=== PATIENT | female | born 2000 | race Caucasian/White ===

== ENCOUNTER 2018-06-02 11:59 | Emergency (ER) | payer BC, OTHER ==
[2018-06-02 12:10] VITALS: BP 110/60
--- NOTE | 2018-06-02 12:55 | RADIOLOGY REPORT (SQ) ---
EXAM DESCRIPTION: HAND RIGHT 3 VIEWS COMPLETED DATE/TIME: 06/02/2018 12:47 pm REASON FOR STUDY: fifth digit pain COMPARISON: None. EXAM PARAMETERS: NUMBER OF VIEWS: Three views. TECHNIQUE: AP, lateral and oblique radiographic images acquired of the right hand. LIMITATIONS: None. FINDINGS: MINERALIZATION: Normal. BONES: No acute fracture or dislocation. No worrisome bone lesions. JOINTS: No effusions. SOFT TISSUES: No soft tissue swelling. No foreign body. OTHER: No other significant finding. IMPRESSION: NEGATIVE STUDY OF THE RIGHT HAND. NO RADIOGRAPHIC EVIDENCE OF ACUTE INJURY. TECHNICAL DOCUMENTATION: JOB ID: [id number] [employer]- All Rights Reserved Reading location - IP/workstation name: [email or web address]
--- NOTE | 2018-06-02 13:11 | ER Document Report ---
ED General - General Chief Complaint: Hand Injury Stated Complaint: RIGHT HAND PAIN Time Seen by Provider: 06/02/18 12:14 TRAVEL OUTSIDE OF THE [place] IN LAST 30 DAYS: No - HPI Patient complains to provider of: Right hand injury Notes: Patient coming in for evaluation of right hand pain patient points to the MCP joint of the fifth digit on the right hand patient states she was playing basketball when she fell on outstretched hand causing injury. Patient has no deformity denies any other injuries denies any fevers chills nausea vomiting diarrhea denies any chronic medical issues except for asthma. Denies any wrist pain or elbow pain - Related Data Allergies/Adverse Reactions: No Known Allergies Allergy (Verified 06/02/18 12:00) Past Medical History - Social History Smoking Status: Never Smoker Family History: Reviewed & Not Pertinent Patient has suicidal ideation: No Patient has homicidal ideation: No Pulmonary Medical History: Reports: Hx Asthma Renal/ Medical History: Denies: Hx Peritoneal Dialysis Review of Systems - Review of Systems Constitutional: No symptoms reported EENT: No symptoms reported Cardiovascular: No symptoms reported Respiratory: No symptoms reported Gastrointestinal: No symptoms reported Genitourinary: No symptoms reported Female Genitourinary: No symptoms reported Musculoskeletal: Other - Injury to the fifth digit Skin: No symptoms reported Hematologic/Lymphatic: No symptoms reported Neurological/Psychological: No symptoms reported Physical Exam - Vital signs Vitals: Temp Pulse Resp BP Pulse Ox 99.1 F 71 15 110/60 99 06/02/18 12:09 06/02/18 12:09 06/02/18 12:09 06/02/18 12:09 06/02/18 12:09 Interpretation: Normal - General General appearance: Appears well, Alert - HEENT Head: Normocephalic, Atraumatic Eyes: Normal Pupils: PERRL - Respiratory Respiratory status: No respiratory distress Chest status: Nontender Breath sounds: Normal Chest palpation: Normal - Cardiovascular Rhythm: Regular Heart sounds: Normal auscultation Murmur: No - Abdominal Inspection: Normal Distension: No distension Bowel sounds: Normal Tenderness: Nontender Organomegaly: No organomegaly - Back Back: Normal, Nontender - Extremities General upper extremity: Tender - Slight swelling to the MCP joint of the fifth digit, Normal color, Normal ROM, Normal temperature. No: Normal inspection General lower extremity: Normal inspection, Nontender, Normal color, Normal ROM, Normal temperature, Normal weight bearing. No: Chapis's sign - Neurological Neuro grossly intact: Yes Cognition: Normal Orientation: AAOx4 [place] Coma Scale Eye Opening: Spontaneous [place] Coma Scale Verbal: Oriented [place] Coma Scale Motor: Obeys Commands [place] Coma Scale Total: 15 Speech: Normal Motor strength normal: LUE, RUE, LLE, RLE Sensory: Normal - Psychological Associated symptoms: Normal affect, Normal mood - Skin Skin Temperature: Warm Skin Moisture: Dry Skin Color: Normal Course - Re-evaluation Re-evalutation: 06/02/18 15:11 X-rays negative for fracture recommend carli taping patient states very familiar with the procedure repeat x-rays in 7 days if there is no improvement with Tylenol Motrin ice heat for pain control - Vital Signs Vital signs: Temp Pulse Resp BP Pulse Ox 99.1 F 71 15 110/60 99 06/02/18 12:09 06/02/18 12:09 06/02/18 12:09 06/02/18 12:09 06/02/18 12:09 Discharge - Discharge Clinical Impression: Injury of right hand Qualifiers: Encounter type: initial encounter Qualified Code(s): S69.91XA - Unspecified injury of right wrist, hand and finger(s), initial encounter Disposition: HOME, SELF-CARE Instructions: Tendon Strain ([facility]) Additional Instructions: Your x-ray today is negative for any signs of a fracture would recommend applying ice and heat to help with the pain please follow-up with your primary care physician return to ER if symptoms worsen. Prescriptions: Ibuprofen [Motrin 600 mg Tablet] 600 mg PO Q8HP PRN #21 tablet PRN Reason: Forms: Return to Work
== END 2018-06-02 13:16 | disposition home or self-care (01) ==
LOC: ER 11:59
DX: S69.91XA Unspecified injury of right wrist, hand and finger(s), initial encounter (principal); W18.30XA Fall on same level, unspecified, initial encounter; Y93.67 Activity, basketball
CPT/HCPCS: 99283

== ENCOUNTER 2018-11-24 08:00 | Emergency (ER) | payer BC, OTHER ==
[2018-11-24] MEDS ORDERED: DEXAMETHASONE SOD PHOS INJ 10 MG/1 ML VIAL IM ONE (09:24)
--- NOTE | 2018-11-24 09:27 | ER Document Report ---
HPI - HPI Time Seen by Provider: 11/24/18 09:17 Pain Level: 3 Context: Patient is a 18-year-old female presents to the emergency department for the chief complaint of fever. Patient states that she has had a dry cough for 1 week. Patient reports she feels like the cough has gotten better. Patient reports nausea without vomiting. Patient states she has had a decreased appetite and sore throat over the past 24 hours. Patient states it is difficult to swallow as it causes significant pain to her throat. Patient has not taken anything for her pain or discomfort. Patient denies abdominal pain. Patient denies diarrhea. Patient states she has a history of strep and states that it feels the same. - REPRODUCTIVE Reproductive: DENIES: : Past Medical History - General Information source: Patient - Social History Smoking Status: Unknown if Ever Smoked Lives with: Spouse/Significant other Family History: Reviewed & Not Pertinent - Past Medical History Cardiac Medical History: Reports: None Pulmonary Medical History: Reports: Hx Asthma EENT Medical History: Reports: None Neurological Medical History: Reports: None Endocrine Medical History: Reports: None Renal/ Medical History: Reports: None. Denies: Hx Peritoneal Dialysis Malignancy Medical History: Reports: None GI Medical History: Reports: None Musculoskeletal Medical History: Reports None Skin Medical History: Reports None Psychiatric Medical History: Reports: None Traumatic Medical History: Reports: None Infectious Medical History: Reports: None Surgical Hx: Negative Vertical Provider Document - CONSTITUTIONAL Agree With Documented VS: Yes Exam Limitations: No Limitations General Appearance: No Apparent Distress - INFECTION CONTROL TRAVEL OUTSIDE OF THE [place] IN LAST 30 DAYS: No - HEENT HEENT: Atraumatic, Normocephalic, PERRLA Notes: TM's normal, nares patent. +2 tonsillar hypertrophy with exudate bilaterally, pharynx reddened, foul odor coming from mouth. - NECK Neck: Lymphadenopathy-Right - RESPIRATORY Respiratory: Breath Sounds Normal, No Respiratory Distress - CARDIOVASCULAR Cardiovascular: Regular Rate, Regular Rhythm - GI/ABDOMEN Gastrointestinal: Abdomen Soft, Abdomen Non-Tender - BACK Back: Normal Inspection Notes: No CVA tenderness. - NEURO Level of Consciousness: Awake, Alert, Appropriate - DERM Integumentary: Warm, Dry, No Rash Course - Re-evaluation Re-evalutation: 11/24/18 11:39 I did explain to the patient that her strep test was positive. She will be treated with a one-time dose of Bicillin and does not require oral antibiotics upon discharge. Patient verbalizes understanding and denies questions. I did provide the patient with a work note. Patient encouraged to take p.o. liquids to stay hydrated and use Tylenol as needed for pain or fever. - Vital Signs Vital signs: Temp Pulse Resp BP Pulse Ox 98.4 F 110 H 16 110/75 98 11/24/18 08:03 11/24/18 08:03 11/24/18 08:03 11/24/18 08:03 11/24/18 08:03 Discharge - Discharge Clinical Impression: Strep pharyngitis Condition: Stable Disposition: HOME, SELF-CARE Instructions: Strep Throat ([facility]) Additional Instructions: Today you were seen in the emergency department for sore throat. Your strep test was positive. You have been treated appropriately with a 1 dose IM injection of Bicillin. You do not need a prescription for oral antibiotics. Her symptoms should resolve over the next few days. If you do not have any improvement in 3 days or have difficulty breathing, increasing throat pain, high fever, rash or frequent vomiting please return to the emergency department or your primary care physician for repeat evaluation. Please take Tylenol as needed for pain. Strep Throat Your sore throat is due to the streptococcus germ (strep throat). Strep throat usually makes you feel quite ill with fever and aches, headache, swollen sore throat, and tender bumps under the angles of the jaw. Strep throat requires antibiotic treatment. Although the sore throat may go away by itself, complications such as rheumatic fever, kidney disease, or throat abscess can occur. We usually prescribe antibiotics by mouth. Be sure to take the medicine until it's gone. If you stop early, the strep may come back. If you are vomiting, are severely ill, or can't remember to take pills, we can give you an antibiotic shot. Take acetaminophen or ibuprofen for pain and fever. Sip frequent clear liquids, or use popsicles or ice chips. Anesthetic sprays or lozenges may help. Make sure the air in the room is not too dry. Avoid using decongestants or antihistamines. Call the doctor if there is no improvement in three days, or if you have difficulty breathing, increasing throat pain, high fever, rash, or frequent vomiting. Forms: Return to Work
[2018-11-24] MEDS ORDERED: PENICILLIN G BENZATHINE 1.2 MILLION UNIT/2 ML DISP.SYRIN IM ONE (10:40)
[2018-11-24 11:25] VITALS: BP 98/69
== END 2018-11-24 11:30 | disposition home or self-care (01) ==
LOC: ER 08:00
DX: J02.0 Streptococcal pharyngitis (principal)
CPT/HCPCS: 99283; 96374; 87880; J0561; J1100

== ENCOUNTER 2019-08-30 20:31 | Emergency (ER) | payer BC, OTHER ==
[2019-08-30 20:38] VITALS: BP 124/83
[2019-08-30] MEDS ORDERED: METOCLOPRAMIDE HCL 10 MG TABLET PO ONE (20:49)
[2019-08-30] MEDS ORDERED: NORMAL SALINE 1000 ML 1,000 ML IV ONE (20:49)
--- NOTE | 2019-08-30 20:52 | ER Document Report ---
ED Medical Screen (RME) - General Chief Complaint: Vomiting Stated Complaint: VOMITING Time Seen by Provider: 08/30/19 20:48 Mode of Arrival: Ambulatory Information source: Patient Notes: 19-year-old female presents to ED for complaint of nausea and vomiting and unable to keep any food down. She is 8 weeks 1 para 0. She states she does also have a headache. She states she had an ultrasound on Sunday that showed she does have a intrauterine . She is alert oriented respirations regular nonlabored. She states she started to have cramping in her abdomen but she called her doctor and they told her that could be from her vomiting. I have ordered third, urine, IV fluids when she gets to her room, Reglan p.o., and she will be seen by another provider. I have greeted and performed a rapid initial assessment of this patient. A comprehensive ED assessment and evaluation of the patient, analysis of test results and completion of medical decision making process will be conducted by an additional ED providers. TRAVEL OUTSIDE OF THE [place] IN LAST 30 DAYS: No - Related Data Allergies/Adverse Reactions: No Known Allergies Allergy (Verified 11/24/18 08:01) Past Medical History Pulmonary Medical History: Reports: Hx Asthma Renal/ Medical History: Denies: Hx Peritoneal Dialysis Physical Exam - Vital signs Vitals: Temp Pulse Resp BP Pulse Ox 97.8 F 91 13 124/83 100 08/30/19 20:35 08/30/19 20:35 08/30/19 20:35 08/30/19 20:35 08/30/19 20:35 Course - Vital Signs Vital signs: Temp Pulse Resp BP Pulse Ox 97.8 F 91 13 124/83 100 08/30/19 20:35 08/30/19 20:35 08/30/19 20:35 08/30/19 20:35 08/30/19 20:35
[2019-08-30 21:32] LABS: ABSOLUTE EOSINOPHILS # (AUTO) 0.1 10^3/uL (0.0-0.6); ABSOLUTE LYMPHOCYTES (AUTO) 1.7 10^3/uL (0.5-4.7); ABSOLUTE MONOCYTES (AUTO) 0.6 10^3/uL (0.1-1.4); ABSOLUTE NEUT (AUTO) 8.9 10^3/uL (1.7-8.2); BASOPHILS % (AUTO) 0.4 % (0-2); EOSINOPHILS % (AUTO) 0.7 % (0-6); HEMATOCRIT 38.4 % (36.0-47.0); HEMOGLOBIN 13.4 g/dL (12.0-15.5); LYMPHOCYTES % (AUTO) 14.6 % (13-45); MEAN CORPUSCULAR HEMOGLOBIN 29.1 pg (27.0-33.4); MEAN CORPUSCULAR HGB CONC 34.8 g/dL (32.0-36.0); MEAN CORPUSCULAR VOLUME 84 fl (80-97); MONOCYTES % (AUTO) 5.4 % (3-13); PLATELET COUNT 300 10^3/uL (150-450); RED CELL DISTRIBUTION WIDTH 13.8 % (11.5-14.0); SEGMENTED NEUTROPHILS % (AUTO) 78.9 % (42-78); TOTAL CELLS COUNTED % (AUTO) 100 %; WHITE BLOOD COUNT 11.3 10^3/uL (4.0-10.5)
[2019-08-30 21:40] LABS: APPEARANCE,URINE SLIGHTLY-CLOUDY; BILIRUBIN,URINE NEGATIVE (NEGATIVE); COLOR,URINE YELLOW; GLUCOSE, URINE NEGATIVE (NEGATIVE); KETONES,URINE NEGATIVE (NEGATIVE); PROTEIN,URINE NEGATIVE (NEGATIVE); URINE SPECIFIC GRAVITY 1.024; UROBILINOGEN,URINE NEGATIVE mg/dL (<2.0)
[2019-08-30 21:50] LABS: ALBUMIN 4.4 g/dL (3.5-5.0); ALKALINE PHOSPHATASE 57 U/L (38-126); ANION GAP 9 (5-19); ASPARTATE AMINO TRANSFERASE 21 U/L (14-36); BILIRUBIN,TOTAL 0.4 mg/dL (0.2-1.3); BLOOD UREA NITROGEN 7 mg/dL (7-20); CALCIUM 9.7 mg/dL (8.4-10.2); CARBON DIOXIDE 24 mmol/L (22-30); CHLORIDE 102 mmol/L (98-107); GLUCOSE 91 mg/dL (75-110); TOTAL PROTEIN 7.7 g/dL (6.3-8.2)
== END 2019-08-30 23:21 | disposition left against medical advice (07) ==
LOC: ER 20:31
DX: O26.91 Pregnancy related conditions, unspecified, first trimester (principal); Z3A.08 8 weeks gestation of pregnancy
CPT/HCPCS: 36415; 80053; 81001; 83690; 85025; 99281